=== PATIENT | male | born 1975 | race Caucasian/White ===

== ENCOUNTER 2017-04-28 15:51 | Emergency (ER) | payer MEDICAID, OTHER ==
[~2017-04-28] VITALS: Wt 82.7 kg
[2017-04-28] MEDS ORDERED: ONDANSETRON (ODT) 4 MG TAB ODT STA (17:45)
[2017-04-28] MEDS ORDERED: HYDROCODONE/APAP (5/325) TAB PO ONE (18:00)
[2017-04-28] MEDS ORDERED: LIDOCAINE 1% (MDV) 20 ML INJ SC ONE (18:30)
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
[2017-04-28] MEDS ORDERED: ACET325T33 PO (19:15)
[2017-04-28 19:20] VITALS: BP 146/89; PULSE 90; RESP 18; TEMP 98.7
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
== END 2017-04-28 19:30 | disposition home or self-care (01) ==
LOC: FTE 15:51
DX: S01.01XA Laceration without foreign body of scalp, initial encounter (principal); Y08.89XA Assault by other specified means, initial encounter
CPT/HCPCS: 12001; 70450; 70486; Z7502; Z7610

== ENCOUNTER 2017-05-01 16:03 | Emergency (ER) | payer MEDICAID ==
[~2017-05-01] VITALS: Ht 170.2 cm; Wt 81.0 kg
[~2017-05-01 16:03] MED LIST: ACET325T33 PO
[2017-05-01 16:04] VITALS: Ht 170.2 cm; Wt 81.0 kg
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
[2017-05-01] MEDS ORDERED: BACI28.34 TOP (19:06)
== END 2017-05-01 19:05 | disposition home or self-care (01) ==
LOC: FTE 16:03
DX: S01.01XD Laceration without foreign body of scalp, subsequent encounter (principal); Y08.09XD Assault by strike by other specified type of sport equipment, subsequent encounter
CPT/HCPCS: 99281

== ENCOUNTER 2017-05-05 16:31 | Emergency (ER) | payer MEDICAID ==
[~2017-05-05] VITALS: Ht 160 cm; Wt 82.6 kg
[~2017-05-05 16:31] MED LIST changes: +BACI28.34 TOP
[2017-05-05 16:33] VITALS: Ht 160 cm; Wt 82.6 kg
--- NOTE | 2017-05-05 17:05 | ERD ---
ER Documentation Chief Complaint Chief Complaint SUNIL REMOVAL FROM HEAD; PLACED IN LAST WEEK HPI Patient is a 41-year-old male presenting to the emergency department for tape removal from his scalp. He has no complaints currently. ROS All systems reviewed and are negative except as per history of present illness. Medications Home Meds Active Scripts Bacitracin* (Bacitracin Zinc Oint*) 28.35 Gm Oint, 1 APPLIC TOP BID, #1 TUB APPLI TO Prov:ELIGIO BECERRIL PA-C 05/01/17 Acetaminophen* (Tylenol*) 325 Mg Tablet, 2 TAB PO Q6 Y for PAIN AND OR ELEVATED TEMP, #20 TAB Prov:SOFIA REYNA PA-C 04/28/17 Allergies Allergies: Coded Allergies: No Known Allergy (Unverified , 04/28/17) PMhx/Soc Medical and Surgical Hx: pt denies Medical Hx, pt denies Surgical Hx Hx Alcohol Use: No Hx Substance Use: No Hx Tobacco Use: No Smoking Status: Never smoker Physical Exam Vitals Vital Signs Date Time Temp Pulse Resp B/P Pulse Ox O2 Delivery O2 Flow Rate FiO2 05/05/17 16:33 98.1 88 18 150/88 97 Physical Exam Const: Well-appearing male in no acute distress. Head: [address] over the right parietal lobe of the scalp over a well -healed laceration. Eyes: Normal Conjunctiva Neur: Awake and alert Psych: Normal Mood and Affect Procedures/MDM Staple Removal by me: Sunil removed with staple remover without incident. Wound shows no evidence of infection, foreign body, neurologic injury, vascular injury, open joint or tendon laceration. Patient to follow up PRN. Departure Diagnosis: Primary Impression: Encounter for removal of sunil Condition: Fair Patient Instructions: Staple Removal, No Complication Additional Instructions: Call your primary care doctor TOMORROW for an appointment during the next 1 WEEK.Tell the medical assistant secretary that you were referred from this facility.See the doctor sooner or return here if your condition worsens before your appointment time. SOFIA REYNA PA-C May 05, 2017 17:05
== END 2017-05-05 17:02 | disposition home or self-care (01) ==
LOC: FTE 16:31
DX: Z48.02 Encounter for removal of sutures (principal)
CPT/HCPCS: 99281